=== PATIENT | male | born 1970 | race Caucasian/White ===

== ENCOUNTER 2017-10-18 08:44 | Emergency (ER) | payer MEDICARE, SELFPAY ==
[2017-10-18 08:45] VITALS: BP 144/99; PULSE 76; RESP 17; TEMP 37.2; O2SAT 94; BMI 27.8
--- NOTE | 2017-10-18 09:08 | CT_ITS ---
STUDY: CT BRAIN WITHOUT CONTRAST REASON FOR EXAM: Male, 47 years old. Vertigo times today, patient is deaf. RADIATION DOSAGE (If Supplied By Facility): CTDIvol = ( 44.99 ) mGy, DLP = ( 846.73 ) mGycm TECHNIQUE: Transaxial CT imaging of the brain was performed without administration of intravenous contrast material. Individualized dose optimization techniques were used for this CT. COMPARISON: None. FINDINGS: Normal soft tissue structures. Normal calvarium. There is asymmetry of the ventricles which can be an anatomic variant. Normal white matter tracts of the cerebral hemispheres. Normal basal ganglia and thalami. Normal brainstem. Normal cerebellum. There is no intracranial hemorrhage. There are no findings of an acute ischemic infarction. There is minimal mucoperiosteal inflammatory disease of the bilateral ethmoid and right maxillary sinuses consistent with minimal chronic sinusitis. The bilateral mastoid air cells are clear. CT/Brain/Head without Contrast IMPRESSION: There is no acute intracranial pathology. Electronically Signed: Belgica Perez MD at 9:52 EST , Service support ,
--- NOTE | 2017-10-18 09:09 | EKG12_ITS ---
Test Reason : DIZZINESS Blood Pressure : / mmHG Vent. Rate : 062 BPM Atrial Rate : 062 BPM P-R Int : 178 ms QRS Dur : 110 ms QT Int : 374 ms P-R-T Axes : 057 026 036 degrees QTc Int : 379 ms Normal sinus rhythm Normal ECG Confirmed by CAMILA CHRISTY, MÓNICA ([id number]), marketing editor MARIBETH GARCIA ([id number] on 10/21/2017 10:31:35 AM Referred By: DANIEL Confirmed By:MÓNICA JENSEN MD
[2017-10-18] MEDS: 0.9% Normal Saline 1,000 ML 150 ML IV (09:31)
[2017-10-18] MEDS: Meclizine 12.5 MG Tablet 25 MG PO (09:31)
[2017-10-18 09:32] VITALS: BP 124/90; BP 132/90; BP 141/93; PULSE 68; PULSE 77; PULSE 82
[2017-10-18 09:36] LABS: Absolute Lymphocyte Count 2.71 X10^3/ul (0.83-4.51); Absolute Neutrophil Count 4.2 X10^3/uL (2.0-7.7); Basophil# 0.06 X10^3/uL; Basophil% 0.7 % (0-1); Eosinophil# 0.79 X10^3/uL; Eosinophils% 9.3 % (0-5); Hematocrit 43.9 % (40-54); Hemoglobin 15.1 g/dl (13.0-16.5); Lymphocyte # 2.71 X10^3/ul (4.0); Mean Corp Hgb Conc 34.4 g/gl (32-36); Mean Corpuscular Hgb 31.2 pg (27.0-32.0); Mean Corpuscular Volume 90.7 fL (80-94); Mean Platelet Vol. 9.9 fl (6.2-12.0); Monocyte# 0.66 X10^3/uL; Monocyte% 7.8 % (0-10); Neutrophil # 4.24 X10^3/uL (2.7-7.7); Platelet Count 202 K/mm3 (150-450); RBC Distribution Width CV 12.9 % (11.6-14.6); RBC Distribution Width SD 42.3 fl (35.1-43.9); Red Blood Count 4.84 M/mm3 (4.6-6.2); White Blood Count 8.5 K/mm3 (4.4-11.0)
[2017-10-18 09:37] LABS: POSITIVE COUNT NO; POSITIVE DIFFERENTIAL NO; POSITIVE MORPHOLOGY NO
[2017-10-18 09:49] LABS: Anion Gap 7 (5-15); BUN 11 mg/dL (7-18); BUN/Creat Ratio 11.6 RATIO (10-20); Chloride 106 mmol/L (98-107); Creatinine, Serum 0.94 mg/dL (0.70-1.30); EST Glomerular Filtration Rate 91 mL/min (>60); Est Glom Filt Rate - Afr Amer 111 mL/min (>60); Estimated Creatinine Clearance 115.38 ml/min; Glucose 82 mg/dL (70-110); Potassium 3.7 mmol/L (3.5-5.1); Sodium Level 140 mmol/L (136-145)
--- NOTE | 2017-10-18 10:12 | ED.VISSUMM ---
- ER Visit Summary Date of Service: 10/18/17 Chief Complaint: [Dizziness] History of Present Illness: The patient is a 47 M [presents to the emergency department with dizziness ?4 days. Patient states that he woke up one morning and was acutely lightheaded and dizzy. Patient felt very off balance and nauseated. Patient states that typically dizziness is worse when laying on his left side and turning his head. Patient denies any falls or head injuries. Denies any recent illness and denies any fever. Patient has had some intermittent headaches but none currently. Patient has been under increased stress for the last 4 days due to some social issues. The patient and his significant other are both deaf however they are good lip readers and I was able to communicate with them initially by writing out questions on paper. Before the end of their visit a sign poster presented to the ER to assist with communication.] Physical Examination: [HEENT-PERRLA, EOMI. Cranial nerves II through XII grossly intact. TMs clear. Mucous membranes moist. No adenopathy. Cardiovascular-regular rate and rhythm without murmur or ectopy Lungs-clear to auscultation, chest wall stable without crepitus or subcu emphysema Abdomen-normoactive bowel sounds, soft, nontender, no rebound or rigidity, no peritoneal signs. Neuro bacc-qwgwkc-ogga and heel baker testing within normal limits, negative Romberg, negative pronator drift, fundi benign. Patient was Hallpike and no nystagmus was elicited. Extremities-intact ?4, normal range of motion, normal pulses, atraumatic] Test Results: [EKG obtained on arrival shows sinus rhythm with a ventricular rate of 62 bpm with no acute ST segment changes. CBC with differential was normal. Chemistries were normal. Troponin was less than 0.02. CT scan of the brain without contrast was normal.] Emergency Department Course and Treatment: [Patient was medicated with Antivert and he did feel improved after. I will ambulate patient in the department and plan will be to discharge to home with referral to neurology on-call.] Treatment Plan: [Prescription for Antivert and follow-up with neurology] Disposition: [Discharged home in stable condition] Impression: [Vertigo-suspect benign positional] This note was generated with RubyRideation software. It may contain incorrect words, spelling, and punctuation that were not noted in review of the chart prior to signing ED Disposition - Plan for ED Patient: Chief Complaint: Dizziness Referrals: Nazanin Beltran MD [Primary Care Provider] -
--- NOTE | 2017-10-18 10:16 | ED.DCSUM_ITS ---
- ER Visit Summary Date of Service: 10/18/17 Chief Complaint: [Dizziness] History of Present Illness: The patient is a 47 M [presents to the emergency department with dizziness ?4 days. Patient states that he woke up one morning and was acutely lightheaded and dizzy. Patient felt very off balance and nauseated. Patient states that typically dizziness is worse when laying on his left side and turning his head. Patient denies any falls or head injuries. Denies any recent illness and denies any fever. Patient has had some intermittent headaches but none currently. Patient has been under increased stress for the last 4 days due to some social issues. The patient and his significant other are both deaf however they are good lip readers and I was able to communicate with them initially by writing out questions on paper. Before the end of their visit a analog circuit designer presented to the ER to assist with communication.] Physical Examination: [HEENT-PERRLA, EOMI. Cranial nerves II through XII grossly intact. TMs clear. Mucous membranes moist. No adenopathy. Cardiovascular-regular rate and rhythm without murmur or ectopy Lungs-clear to auscultation, chest wall stable without crepitus or subcu emphysema Abdomen-normoactive bowel sounds, soft, nontender, no rebound or rigidity, no peritoneal signs. Neuro djar-yceonm-jkns and heel baker testing within normal limits, negative Romberg, negative pronator drift, fundi benign. Patient was Hallpike and no nystagmus was elicited. Extremities-intact ?4, normal range of motion, normal pulses, atraumatic] Test Results: [EKG obtained on arrival shows sinus rhythm with a ventricular rate of 62 bpm with no acute ST segment changes. CBC with differential was normal. Chemistries were normal. Troponin was less than 0.02. CT scan of the brain without contrast was normal.] Emergency Department Course and Treatment: [Patient was medicated with Antivert and he did feel improved after. I will ambulate patient in the department and plan will be to discharge to home with referral to neurology on-call.] Treatment Plan: [Prescription for Antivert and follow-up with neurology] Disposition: [Discharged home in stable condition] Impression: [Vertigo-suspect benign positional] This note was generated with InSite Wirelessation software. It may contain incorrect words, spelling, and punctuation that were not noted in review of the chart prior to signing ED Disposition - Plan for ED Patient: Chief Complaint: Dizziness Referrals: Nazanin Beltran MD [Primary Care Provider] -
--- NOTE | 2017-10-18 10:16 | ED.DEP ---
ED Disposition - Plan for ED Patient: Chief Complaint: Dizziness Instructions: ED BPV Vertigo Prescriptions: Meclizine HCl [Antivert] 25 mg PO 4X/DAY PRN PRN #30 tab PRN Reason: Vertigo Referrals: Nazanin Beltran MD [Primary Care Provider] - Eduarda Carney MD [STAFF PHYSICIAN] - 3-5 Days
[2017-10-18 10:22] VITALS: BP 139/95; PULSE 70; RESP 16; O2SAT 97
--- NOTE | 2017-10-18 10:28 | ED.RN ---
Verbal and written d/c instructions given via spanish interpreter. All questions answered. Skin w/d. ABCs intact. Gait steady out of department.
== END 2017-10-18 10:28 | disposition home or self-care (01) ==
PROVIDERS: Emergency Provider Emergency Medicine; Family Provider Internal Medicine; PCP Internal Medicine
DX: R42 Dizziness and giddiness (principal); Z72.0 Tobacco use
CPT/HCPCS: 70450; 80048; 84484; 85025; 93005; 96360; 99284; J7030; A4216

== ENCOUNTER 2020-06-11 16:25 | Emergency (ER) | payer MEDICARE, SELFPAY ==
[2020-06-11 16:26] VITALS: BP 112/89; PULSE 81; RESP 16; TEMP 35.9; O2SAT 98; BMI 32.2
--- NOTE | 2020-06-11 16:37 | RAD_ITS ---
STUDY: X-RAY CHEST REASON FOR EXAM: Male, 50 years old. FALL ONTO GLASS TABLE, LACERATION TO LEFT UPPER ARM/ AXILLA, MAJOR BLOOD LOSS -- PT UNABLE TO RELAX LEFT ARM OUT OF CHEST FIELD D/T THE INJURY TECHNIQUE: AP COMPARISON: 06/06/2016 FINDINGS: The lungs are clear and expanded. There is no demonstrated pleural abnormality. Normal size heart. Normal mediastinum and luis. Normal visualized pulmonary arteries. Normal visualized aortic arch and descending thoracic aorta. Normal visualized thoracic spine. Normal visualized ribs, clavicles, and shoulders. There is no demonstrated abnormality of the visualized soft tissue structures of the upper abdomen. RAD/Chest 1 View (Portable) IMPRESSION: Stable, nonacute portable x-ray examination of the chest. Electronically Signed: Demetrio Ahmadi MD (Bro[place]) at 16:57 EDT , Service support ,
[2020-06-11] MEDS: 0.9% Normal Saline 1,000 ML 1000 ML IV (16:38)
[2020-06-11] MEDS: Diphth,Pertuss(Acell),Tet Vac 0.5 ML Vial IM (16:41)
[2020-06-11] MEDS: Ondansetron 4 MG/2 ML Vial IV (16:41)
[2020-06-11] MEDS: Cefazolin 1 GM/50 ML BAG IV (16:41)
--- NOTE | 2020-06-11 16:43 | ED.DCSUM_ITS ---
History of Present Illness Chief Complaint: Trauma Informant: Patient Onset: Today Context: Sudden Onset Timing: Continuous Current Severity: Severe Maximum Severity: Severe Narrative: The patient is a 50-year-old male who is deaf that presents to the emergency department with upper arm injury. Patient was at his home. He was in his family room and lost his balance. He fell into a glass coffee table. The table shattered and he suffered a large, deep laceration into the left arm. EMS does note significant blood loss at the scene. The patient was placed in a trauma sterile dressing and brought here immediately. He denies any weakness or numbness in the hand. He is not on anticoagulants. He denies other injury. He is otherwise been in his normal state of health. Prior similar symptoms: No Recent Illness/Hospitalization: No Past Medical History - Allergies and Home Meds Allergies/Adverse Reactions: Allergies No Known Allergies Allergy (Verified 06/11/20 16:33) Primary Care Physician: Nazanin Beltran MD [Primary Care Provider] - Prior records reviewed: Yes Past Medical History: - - Vertigo Surgical History: noncontributory Smoking Status: Current every day smoker Review of Systems General: Denies: Chills, Fever, Sweats Eyes: Denies: Visual changes - bilaterally, Diplopia ENT: Denies: Rhinorrhea, Sore throat Cardiovascular: Denies: Chest pain, Palpitations Respiratory: Denies: Dyspnea, Cough, Dyspnea on exertion Gastrointestinal: Denies: Abdominal pain, Nausea, Vomiting, Diarrhea, Melena, Hematochezia Genitourinary: Denies: Dysuria, Hematuria, Frequency Musculoskeletal: Denies: Back pain, Extremity Pain Skin: Denies: Rash, Wounds Neurological: Denies: Headache, Weakness, Numbness Physical Exam Vital Signs/Narrative: Vital Signs Temp Pulse Resp BP Pulse Ox 06/11/20 16:26 96.7 F L 81 16 112/89 H 98 Inital Vital Signs reviewed: Yes General: Well nourished, Well developed, No Acute Distress Head: Normocephalic, Atraumatic Eyes: Perrl, EOMI ENT: Moist mucous membranes, No rhinorrhea Neck: Supple, Nontender Cardiovascular: Regular rate, Regular rhythm, No murmurs Respiratory: No distress, CTA bilaterally, Chest nontender Abdomen: Soft, Nontender, Nondistended, Normal bowel sounds Back: Nontender, Normal Inspection Extremities: - - Patient has approximately a 12 inch laceration from the dorsum of the left shoulder that runs down the arm longitudinally to the elbow. When dressing is removed, he is through multiple areas of muscle with visible bone. There is no definitive pulsatile bleeding. Skin: Normal color, No rash Neurological: Alert, Oriented x3, Cranial nerves II-XII grossly intact, Normal Strength, Normal Sensation Psychological: Normal affect, Normal Mood Diagnostic/Tx/Re-eval - Medical Decision Making Patient presents with significant laceration with limb threatening trauma. IV was established. He was given Ancef and tetanus. He was discussed immediately with [facility] and accepted by Dr. Rosa. Given the significant mental blood loss and concern for ischemia, I do feel that the patient would benefit from air transport as his trauma is limb threatening. The patient will be transferred immediately to [facility]. Impression 1. 12 inch laceration to left arm through multiple layers, muscle, with exposed bone - Critical Care Time Critical care time (excluding procedures): 30-74 minutes, Discussing w/Patient &/or Family/Hotel Reservation Agent, Discussing w/Consultants, Arranging Admission or Transfer ED Disposition - Plan for ED Patient: Referrals: Nazanin Beltran MD [Primary Care Provider] -
[2020-06-11 16:52] VITALS: BP 130/65; PULSE 70; RESP 12; O2SAT 97
[2020-06-11 16:52] LABS: Absolute Lymphocyte Count 2.91 X10^3/uL (0.83-4.51); Absolute Neutrophil Count 4.5 X10^3/uL (2.0-7.7); Basophil# 0.11 X10^3/uL; Basophil% 1.2 % (0-1); Eosinophil# 0.81 X10^3/uL; Eosinophils% 8.8 % (0-5); Hemoglobin 14.3 g/dL (13.0-16.5); Lymphocyte # 2.91 X10^3/ul (4.0); Lymphocyte % 31.5 % (19-41); Mean Corp Hgb Conc 34.9 g/dL (32-36); Mean Corpuscular Hgb 31.6 pg (27.0-32.0); Mean Corpuscular Volume 90.7 fL (80-94); Mean Platelet Vol. 10.8 fl (6.2-12.0); Monocyte# 0.85 X10^3/uL; Monocyte% 9.2 % (0-10); NRBC Flagged by Analyzer 0 % (0-5); Neutrophil % 48.5 % (47-70); Platelet Count 308 K/mm3 (150-450); RBC Distribution Width CV 12.7 % (11.6-14.6); RBC Distribution Width SD 41.9 fl (35.1-43.9); Red Blood Count 4.52 M/mm3 (4.6-6.2); White Blood Count 9.3 K/mm3 (4.4-11.0)
[2020-06-11 16:58] LABS: International Normalized Ratio 1.1; Prothrombin Time (Protime)PT. 13.4 SECONDS (11.7-14.9)
[2020-06-11 16:59] LABS: Partial Thromboplast Time 26.2 Seconds (24.1-36.2)
--- NOTE | 2020-06-11 16:59 | ED.RN ---
used [employer] tablet for Georgian Sign Language with Dr. Llamas and Ana Maria RN, and this RN to explain transfer to pt. Pt agreeable, gave consent, questions answered.
[2020-06-11 17:06] LABS: ALB/GLOB Ratio 1.1 RATIO (0.9-2.4); AST(SGOT) 17 U/L (15-37); Alanine Aminotransfer ALT/SGPT 29 U/L (16-61); Albumin, Serum 3.8 g/dL (3.2-5.0); Alkaline Phosphatase 60 U/L (45-117); Anion Gap 9 (5-15); BUN 17 mg/dL (7-18); BUN/Creat Ratio 17.5 RATIO (10-20); Calcium,Total 8.6 mg/dL (8.5-10.1); Chloride 111 mmol/L (98-107); Creatinine, Serum 0.97 mg/dL (0.70-1.30); EST Glomerular Filtration Rate 88 mL/min (>60); Est Glom Filt Rate - Afr Amer 106 mL/min (>60); Estimated Creatinine Clearance 105.25 ml/min; Globulin 3.4 g/dL (2.2-4.2); Glucose 120 mg/dL (74-106); Potassium 4.3 mmol/L (3.5-5.1); Protein, Total 7.2 g/dL (6.4-8.2); Sodium Level 140 mmol/L (136-145)
[2020-06-11 17:23] VITALS: BP 101/72; PULSE 82
--- NOTE | 2020-06-11 17:23 | ED.RN ---
2nd Liter of normal saline through pressure bag. 100 mcg fentanyl given by [facility].
== END 2020-06-11 17:30 | disposition short-term general hospital (02) ==
PROVIDERS: Emergency Provider Emergency Medicine; PCP Internal Medicine
DX: S41.112A Laceration without foreign body of left upper arm, initial encounter (principal); F17.200 Nicotine dependence, unspecified, uncomplicated; W19.XXXA Unspecified fall, initial encounter
CPT/HCPCS: 71045; 80053; 85025; 85610; 85730; 90715; 96372; 96374; 99285; J7030; A4216; J2405

== ENCOUNTER 2021-04-11 21:09 | Emergency (ER) | payer MEDICARE, SELFPAY ==
[2021-04-11 21:09] VITALS: BP 175/116; PULSE 74; RESP 16; TEMP 36.3; BMI 31.4
[2021-04-11 21:33] VITALS: BP 171/96
--- NOTE | 2021-04-11 22:25 | ED.VIS.DENTA ---
HPI History of Present Illness Chief Complaint: Dental Informant: patient Onset/Context/Timing Onset: Month(s) (3) Context: Gradual Onset Timing: Continuous Quality: sore, aching Location: all teeth/gums, max and franklyn Current Severity: Severe Maximum Severity: Severe Worsened by: eating, brushing teeth Relieved by: - ( nothing) Associated Symptoms Assocated Symptom - Dental: Negative for fever, jaw swelling or face swelling Narrative Narrative: Patient presents with dental pain has been worsening over the past 3 months. States he has been unable to get into a dentist. States he has been brushing his teeth a lot but it does not seem to matter. He has had a minor amount of bleeding, just from one area on his right mandibular first molar area, but everything is hurting. He denies any focal swelling. [facility] Medical History (Updated 04/11/21 @ 22:[address] Antonio Martel MD) Deaf Home Medications hydrocodone-acetaminophen 1 tab PO Q4H PRN PRN 2 Days #10 tablet 04/11/21 [Rx Last Taken Unknown] metronidazole 500 mg PO Q8H #30 tab 04/11/21 [Rx Last Taken Unknown] Allergy/AdvReac Type Severity Reaction Status Date / Time No Known Allergies Allergy Verified 04/11/21 21:09 Social History Smoking Status: Current every day smoker tobacco type: cigarettes ROS ROS ED Constitutional Constitutional ED: Denies chills or fever(s) Eyes Eyes: Denies change in vision or diplopia ENT ENT ED: Reports as per HPI and dental pain; Denies ear discharge, ear pain, epistaxis or hoarseness Cardiovascular Cardiovascular: Denies chest pain or palpitations Respiratory/Chest Respiratory/Chest: Denies cough or dyspnea Gastrointestinal Gastrointestinal: Denies diarrhea, nausea or vomiting Integumentary Denies abscess, Abrasions or rash Neurologic Neurologic: Denies headache(s), paresthesias or weakness EXAM Physical Exam Const Vital Signs: 04/11/21 21:09 04/11/21 21:33 Temperature 97.3 F L Temperature Source Temporal Pulse Rate 74 Respiratory Rate 16 Blood Pressure 175/116 H 171/96 H Blood Pressure Mean 135 121 Positive well nourished and well developed General Appearance ED: well developed and NAD HEENT HEENT Narrative: No trismus. No sublingual edema or fullness. No stridor. Negative for trauma Mouth ED: Yes tongue normal Mouth: tongue normal Teeth and Gingiva: caries, gingiva abnormal Positive for diffuse gingival erythema (Without any evidence of necrosis or active bleeding. Multiple small dental caries and prior fillings.) and gingival tenderness; Negative for gingival edema and purulent d/c from gingiva and poor dentition Eyes PERRL and EOMs intact bilaterally Neck supple Neck Narrative: Single tender right submandibular lymph node. No fluctuance or abscess. Neuro oriented x3, CN's II-XII intact bilaterally and no focal motor deficits Sensorium / Orientation: alert Gait (Neuro): normal gait Psych mental status grossly normal Skin no rashes or lesions noted and no wounds MDM MDM MDM Narrative Medical decision making narrative: Patient had a fairly focal complaint, and given the fact that he is deaf, we communicated by writing on a piece of paper and he was able to say some words. His was there as well, I asked him if there were any questions, they indicated no, he is basically having dental pain that is progressively been worsening for 3 months, no discharge, minor bleeding, and no fevers or systemic symptoms. He appears to have gingivitis but I see no definitive evidence of necrotizing gingivitis. He was placed on metronidazole, analgesics, and referred to dental clinic. Discharge Plan Triage Chief Complaint: Dental ED Provider: Antonio Martel Dx/Rx/DC Orders Clinical Impression: Acute gingivitis Instructions: Understanding Gingivitis Prescriptions: New hydrocodone-acetaminophen [hydrocodone-acetaminophen] 1 TABLET tablet 1 tab PO Q4H PRN PRN (Reason: Pain) 2 Days Qty: 10 RF: 0 metronidazole [metronidazole] 500 MG tablet 500 mg PO Q8H Qty: 30 RF: 0 Primary Care Provider: Nazanin Beltran Referrals: Nazanin Beltran MD [Primary Care Provider] - Dentist,Your [STAFF PHYSICIAN] - As soon as possible (see resource list attached) Disposition Disposition: Home, Self Care Discharge Date/Time: 04/11/21 22:46
[2021-04-11] MEDS: Naproxen 250 MG Tablet 500 MG PO (22:41)
[2021-04-11] MEDS: HYDROcodone Bitartrate/Apap 5/325 Tablet PO (22:41)
[2021-04-11] MEDS: metroNIDAZOLE 500 MG Tablet PO (22:41)
== END 2021-04-11 22:46 | disposition home or self-care (01) ==
PROVIDERS: Emergency Provider Emergency Medicine; PCP Internal Medicine
DX: K05.00 Acute gingivitis, plaque induced (principal); F17.210 Nicotine dependence, cigarettes, uncomplicated
CPT/HCPCS: 99282

== ENCOUNTER 2023-03-27 18:48 | Emergency (ER) | payer MEDICARE, SELFPAY ==
[2023-03-27 18:51] VITALS: BP 139/107; PULSE 103; RESP 17; TEMP 36.8; O2SAT 100; BMI 29.0
[2023-03-27 18:54] VITALS: BP 141/100; PULSE 102; RESP 17; O2SAT 98
--- NOTE | 2023-03-27 19:19 | EDS_ITS ---
HPI History of Present Illness Chief Complaint: Chest Pain Narrative Narrative: History and physical is limited secondary to patient's deafness, he speaks through Peruvian sign language. 53-year-old male presents with elevated D-dimer from his physician's office, Dr. Bob. Use of third-green party printing machine mechanic using Peruvian sign language was incorporated. He states that he had not seen his primary care physician in approximately 5 years and was there for a physical today. They state that he had a chest x-ray performed and he had abnormal lab work. He went home and was told that they would call [facility] results, and they received a phone call stating that he needs to get to the emergency department because of one of his laboratory values being high. Patient does relate history that he has history of pulmonary embolism years remotely and is currently not taking blood thinners. He has past medical history of asthma and may feel short of breath at times. He also complains of left low back pain radiating down towards his knee on occasion. He is unsure as to which laboratory value was elevated but presents because he was instructed by his primary care physician's office. He denies any chest pain or shortness of breath, no leg swelling or any other symptoms. He did mention that he thought that a dimer was elevated. [facility] Medical History Deaf Home Medications hydrocodone-acetaminophen 5-325mg 5mg-325mg 1 tab PO Q4H PRN PRN Pain 2 days #10 TABLETS 04/11/21 [Rx Last Taken Unknown] metronidazole 500 mg tablet 500 mg PO Q8H #30 tabs 04/11/21 [Rx Last Taken Unknown] Allergy/AdvReac Type Severity Reaction Status Date / Time No Known Allergies Allergy Verified 03/27/23 18:49 Social History Smoking Status: Current every day smoker tobacco type: cigarettes ROS ROS ED ROS Narrative Constitutional: No fever, no chills. HEENT: No sore throat. No neck pain. No loss of vision. No rhinorrhea. Cardiovascular: No chest pain. No palpitations. No pedal edema. Respiratory: No cough, no shortness of breath. Abdominal: No abdominal pain. No nausea. No vomiting. Genitourinary: No dysuria. No hematuria. Musculoskeletal: No myalgias. No arthralgias. Neurologic: No headaches. No dizziness. No lightheadedness. Skin: No rash. No change in color. Psychiatric: No depression. No anxiety. EXAM Physical Exam Narrative Exam Narrative: Afebrile. Vital signs noted. HEENT: Normocephalic. Atraumatic. PERRL, EOMI. Neck soft and supple. No point tenderness or step off. Deafness. Cardiovascular: Regular rate and rhythm. No murmurs, rubs, or gallops appreciated. Respiratory: No tachypnea. Lungs clear to auscultation bilaterally. Gastrointestinal: Abdomen soft, nontender, with normoactive bowel sounds. No rebound or guarding. Neurological: Awake. Alert. Nonfocal, nonlateralizing. Skin: No rash. Normal color. No pallor. Musculoskeletal: No pedal edema. Full range of motion extremities. Const Vital Signs: 03/27/23 18:51 03/27/23 18:54 Temperature 98.3 F Temperature Source Temporal Pulse Rate 103 H 102 H Respiratory Rate 17 17 Blood Pressure 139/107 H 141/100 H Blood Pressure Mean 117 113 Pulse Ox 100 98 Oxygen Delivery Method Room Air Room Air MDM MDM MDM Narrative Medical decision making narrative: I reviewed the patient's prior laboratory work. It looks as if a D-dimer was performed today and is elevated at 0.54 just above his age limit cutoff of 0.51. I will obtain basic laboratory work and a CTA to rule out pulmonary embolism, however he is satting 100% on room air. He is only mildly tachycardic with a pulse of 103. I will see if I can obtain his chest x-ray results. However, I do not feel that a repeat would be indicated as we are obtaining a CTA of his chest. Since he was having left leg pain while I think it is more of a radicular type of pain towards the left, ultrasound will be obtained of the bilateral lower extremities to rule out DVT given his elevated D-dimer. Additionally, I do not feel that an EKG or troponin is indicated because he is not having chest pain currently. I was able to discuss the patient with Dr. Bob who saw him today. Given the patient's history of remote blood clot, the DVT screening labs/D-dimer was obtained. Given that it was elevated, I did repeat it and review it and it was normal at 0.46. I obtained ultrasound studies of the bilateral legs, and they are negative for DVT. CT of the chest shows no evidence of dissection or pulmonary embolism. At this point in time, as he was here for elevated D-dimer and it is actually normal and his studies showed no evidence of clotting, I feel he can be discharged safely home to follow-up with his primary care provider. Return instructions to the emergency department were reviewed. Disposition is discharged home in stable condition. History & Record Review Discussion w/independent historian: Patient Additional record(s) reviewed:: Prior ED visit Lab Data Attestation: I reviewed the patient's lab results. Labs: Laboratory Results - last 24 hr 03/27/23 19:28 WBC 8.6 RBC 4.66 Hgb 14.4 Hct 42.4 MCV 91.0 MCH 30.9 MCHC 34.0 RDW Std Deviation 41.3 RDW Coeff of Lenny 12.6 Plt Count 220 MPV 10.4 Immature Gran % (Auto) 0.500 Neut % (Auto) 65.0 Lymph % (Auto) 21.3 Sublette % (Auto) 6.7 Eos % (Auto) 5.4 H Baso % (Auto) 1.1 H Absolute Neuts (auto) 5.6 Absolute Lymphs (auto) 1.82 Nucleated RBC % 0 D-Dimer Quant (PE/DVT) 0.46 Sodium 141 Potassium 3.7 Chloride 108 H Carbon Dioxide 27.0 Anion Gap 6 BUN 10 Creatinine 1.09 Estim Creat Clear Calc 93.22 Est GFR (MDRD) Af Amer 92 Est GFR (MDRD) Non-Af 76 BUN/Creatinine Ratio 9.2 L Glucose 85 Calcium 9.2 Radiography Diagnostic Testing: Clinical Impression(s) from Imaging Studies Chest CTA 03/27/23 19:42 IMPRESSION: Normal CTA chest examination, without a demonstrated pulmonary embolism or arterial dissection. Electronically Signed: Kranthi Hsieh MD at 20:35 EDT , Venous Duplex 03/27/23 19:48 IMPRESSION: Normal venous Doppler ultrasound of the bilateral lower extremities. Electronically Signed: Kranthi Hsieh MD at 20:42 EDT , Discharge Plan Triage Chief Complaint: Chest Pain ED Provider: Bunny Sutherland Dx/Rx/DC Orders Clinical Impression: SOB (shortness of breath), Elevated d-dimer, Chest pain Instructions: ED Chest Pain, Uncertain Cause Prescriptions: No Action hydrocodone-acetaminophen [hydrocodone-acetaminophen] 1 TABLET tablet 1 tab PO Q4H PRN PRN (Reason: Pain) 2 Days Qty: 10 0RF metronidazole [metronidazole] 500 MG tablet 500 mg PO Q8H Qty: 30 0RF Primary Care Provider: Nas Bob Referrals: Nazanin Beltran MD [Med Staff - Piping Drafter] - Activity Restrictions/Additional Instructions: Follow-up with Dr. Bob as soon as possible. Disposition Disposition: Home, Self Care
[2023-03-27] MEDS: 0.9% Normal Saline 1,000 ML 1000 ML IV (19:29)
[2023-03-27 19:34] LABS: Absolute Lymphocyte Count 1.82 X10^3/uL (0.83-4.51); Absolute Neutrophil Count 5.6 X10^3/uL (2.0-7.7); Basophil# 0.09 X10^3/uL; Basophil% 1.1 % (0-1); Eosinophil# 0.46 X10^3/uL; Eosinophils% 5.4 % (0-5); Hematocrit 42.4 % (40-54); Hemoglobin 14.4 g/dL (13.0-16.5); Lymphocyte # 1.82 X10^3/ul (0.83-4.51); Lymphocyte % 21.3 % (19-41); Mean Corpuscular Hgb 30.9 pg (27.0-32.0); Mean Platelet Vol. 10.4 fl (6.2-12.0); Monocyte# 0.57 X10^3/uL; Monocyte% 6.7 % (0-10); NRBC Flagged by Analyzer 0 % (0-5); Neutrophil # 5.57 X10^3/uL (2.7-7.7); Platelet Count 220 K/mm3 (150-450); RBC Distribution Width CV 12.6 % (11.6-14.6); RBC Distribution Width SD 41.3 fl (35.1-43.9); Red Blood Count 4.66 M/mm3 (4.6-6.2); White Blood Count 8.6 K/mm3 (4.4-11.0)
--- NOTE | 2023-03-27 19:42 | CT_ITS ---
STUDY: CTA CHEST REASON FOR EXAM: Male, 53 years old. elevated d-dimer RADIATION DOSAGE (If Supplied By Facility): CTDIvol = ( 16.99 ) mGy, DLP = ( 543.86 ) mGycm TECHNIQUE: The examination was performed with the intravenous administration of IV 100mL Isovue-370. Post-processing of the angiographic images was performed, with multiplanar reformation and 3D reconstruction. Individualized dose optimization techniques were used for this CT. COMPARISON: None. FINDINGS: Normal enhancement of the main pulmonary artery and right and left pulmonary arteries. Normal enhancement of the bilateral peripheral pulmonary arteries. There is no demonstrated pulmonary embolism. Normal thoracic aorta and visualized great vessels. There is no demonstrated aortic dissection. Normal heart and pericardium. Normal mediastinum. Normal hilar regions. Normal visualized trachea and bronchi. The lungs are well expanded. Normal pulmonary parenchyma. Normal pleura. Normal chest wall structures. Normal osseous structures. Normal visualized upper abdomen. CT/CTA Chest W/WO Contrast IMPRESSION: Normal CTA chest examination, without a demonstrated pulmonary embolism or arterial dissection. Electronically Signed: Kranthi Hsieh MD at 20:35 EDT ,
[2023-03-27 19:47] LABS: Anion Gap 6 (5-15); BUN 10 mg/dL (7-18); BUN/Creat Ratio 9.2 RATIO (10-20); Calcium,Total 9.2 mg/dL (8.5-10.1); Chloride 108 mmol/L (98-107); Creatinine, Serum 1.09 mg/dL (0.70-1.30); EST Glomerular Filtration Rate 76 mL/min (>60); Est Glom Filt Rate - Afr Amer 92 mL/min (>60); Estimated Creatinine Clearance 93.22 ml/min; Glucose 85 mg/dL (74-106); Potassium 3.7 mmol/L (3.5-5.1); Sodium Level 141 mmol/L (136-145)
--- NOTE | 2023-03-27 19:48 | US_ITS ---
STUDY: VENOUS DOPPLER ULTRASOUND - BILATERAL LOWER EXTREMITIES REASON FOR EXAM: Male, 53 years old. chest pain SOB TECHNIQUE: Ultrasound evaluation of the deep vein system to include chacon-scale imaging and compression was performed. Chacon-scale imaging and Doppler sonographic evaluation, including duplex spectral analysis and qualitative color flow sonography, was performed. COMPARISON: None. FINDINGS: RIGHT LEG Common Femoral Vein: Normal compression, spontaneity and augmentation. Normal color Doppler. Common Femoral Vein/Greater Saphenous Junction: Normal compression, spontaneity and augmentation. Normal color Doppler. Deep Femoral Vein: Normal compression, spontaneity and augmentation. Normal color Doppler. Femoral Proximal: Normal compression, spontaneity and augmentation. Normal color Doppler. Femoral Middle: Normal compression, spontaneity and augmentation. Normal color Doppler. Femoral Distal: Normal compression, spontaneity and augmentation. Normal color Doppler. Popliteal Vein: Normal compression, spontaneity and augmentation. Normal color Doppler. Posterior Tibial Vein: Normal compression, spontaneity and augmentation. Normal color Doppler. Peroneal Vein: Normal compression, spontaneity and augmentation. Normal color Doppler. LEFT LEG Common Femoral Vein: Normal compression, spontaneity and augmentation. Normal color Doppler. Common Femoral Vein/Greater Saphenous Junction: Normal compression, spontaneity and augmentation. Normal color Doppler. Deep Femoral Vein: Normal compression, spontaneity and augmentation. Normal color Doppler. Femoral Proximal: Normal compression, spontaneity and augmentation. Normal color Doppler. Femoral Middle: Normal compression, spontaneity and augmentation. Normal color Doppler. Femoral Distal: Normal compression, spontaneity and augmentation. Normal color Doppler. Popliteal Vein: Normal compression, spontaneity and augmentation. Normal color Doppler. Posterior Tibial Vein: Normal compression, spontaneity and augmentation. Normal color Doppler. Peroneal Vein: Normal compression, spontaneity and augmentation. Normal color Doppler. US/Venous Duplex Imag/Al[place]to Extrem IMPRESSION: Normal venous Doppler ultrasound of the bilateral lower extremities. Electronically Signed: Kranthi Hsieh MD at 20:42 EDT ,
[2023-03-27 19:49] LABS: D-Dimer Quantitative (DVT/PE) 0.46 FEU/ug/m (0.27-0.49)
[2023-03-27 21:18] VITALS: RESP 16
== END 2023-03-27 21:19 | disposition home or self-care (01) ==
PROVIDERS: Emergency Provider Emergency Medicine; PCP Family Medicine; Visit Provider Emergency Medicine
DX: R06.02 Shortness of breath (principal); R79.89 Other specified abnormal findings of blood chemistry; R07.9 Chest pain, unspecified; F17.210 Nicotine dependence, cigarettes, uncomplicated; Z86.711 Personal history of pulmonary embolism
CPT/HCPCS: 71275; 80048; 85025; 85379; 93970; 99284; J7030; Q9967; A4216

== ENCOUNTER → 2023-03-27 | Outpatient (CLI) | payer MEDICARE, SELFPAY ==
[2023-03-27 17:10] LABS: D-Dimer Quantitative (DVT/PE) 0.54 FEU/ug/m (0.27-0.49)
== END | disposition home or self-care (01) ==
LOC: LABSPEC 16:37
PROVIDERS: PCP Internal Medicine; Referring Provider Family Medicine; Visit Provider Family Medicine
DX: R07.9 Chest pain, unspecified (principal)
CPT/HCPCS: 85379

== ENCOUNTER 2025-02-07 20:54 | Emergency (ER) | payer MEDICARE, SELFPAY ==
[2025-02-07 20:58] VITALS: BP 182/113; PULSE 67; RESP 18; TEMP 37.1; O2SAT 100; BMI 31.1
[2025-02-07 21:11] VITALS: BP 130/72; PULSE 78; RESP 18; TEMP 37; O2SAT 98
[2025-02-07] MEDS: 0.9% Normal Saline (1000mL) 1,000 ML 999 ML IV (22:15)
[2025-02-07] MEDS: Dicyclomine 10 MG Capsule 20 MG PO (22:16)
[2025-02-07] MEDS: Ketorolac 30 MG/ML Syringe IV (22:16)
[2025-02-07] MEDS: Ondansetron 4 MG/2 ML Vial IV (22:16)
[2025-02-07 22:33] LABS: Absolute Lymphocyte Count 1.79 X10^3/uL (0.83-4.51); Absolute Neutrophil Count 4.1 X10^3/uL (2.0-7.7); Basophil# 0.07 X10^3/uL; Basophil% 0.9 % (0-1); Eosinophil# 0.83 X10^3/uL; Eosinophils% 11.1 % (0-5); Hematocrit 43.8 % (40-54); Hemoglobin 15.4 g/dL (13.0-16.5); Lymphocyte # 1.79 X10^3/ul (0.83-4.51); Mean Corp Hgb Conc 35.2 g/dL (32-36); Mean Corpuscular Volume 90.9 fL (80-94); Mean Platelet Vol. 10.6 fl (6.2-12.0); Monocyte# 0.64 X10^3/uL; Monocyte% 8.6 % (0-10); NRBC Flagged by Analyzer 0 % (0-5); Neutrophil # 4.09 X10^3/uL (2.7-7.7); Platelet Count 232 K/mm3 (150-450); RBC Distribution Width CV 12.5 % (11.6-14.6); RBC Distribution Width SD 41.1 fl (35.1-43.9); Red Blood Count 4.82 M/mm3 (4.6-6.2); White Blood Count 7.5 K/mm3 (4.4-11.0)
[2025-02-07 22:43] LABS: AST(SGOT) 18 U/L (<=37); Alanine Aminotransfer ALT/SGPT 20 U/L (<=46); Albumin, Serum 4.5 g/dL (3.5-5.0); Alkaline Phosphatase 59 U/L (40-129); Anion Gap 11 (5-15); BUN 12 mg/dL (4-19); BUN/Creat Ratio 13.3 RATIO (10-20); Bilirubin, Direct 0.19 mg/dL (0.00-0.30); Calcium,Total 9.4 mg/dL (7.6-11.0); Carbon Dioxide 23.4 mmol/L (21.0-32.0); Chloride 105 mmol/L (98-108); Creatinine, Serum 0.93 mg/dL (0.70-1.20); EST Glomerular Filtration Rate 99 (>60); Estimated Creatinine Clearance 122.55 ml/min (50-250); Globulin 3.2 g/dL (2.2-4.2); Glucose 87 mg/dL (70-99); Lipase 45 U/L (13-75); Potassium 3.8 mmol/L (3.3-5.1); Protein, Total 7.7 g/dL (5.9-8.4); Sodium Level 139 mmol/L (133-145); Total Bilirubin 0.46 mg/dL (0.00-1.30)
[2025-02-07 22:55] VITALS: BP 165/95; PULSE 78; RESP 18; O2SAT 98
--- NOTE | 2025-02-07 23:20 | EDS_ITS ---
HPI History of Present Illness Chief Complaint: General Illness Informant: patient and spouse/S.O. Narrative Narrative: Patient is a 54-year-old male who states he awoke today and had generalized abdominal discomfort with bouts of nausea vomiting and loose stool/diarrhea. He states he has a mild headache associated with this. He denies any trauma. He denies any known sick contact. He states that he feels generally weak secondary to his symptoms. He states that they have not improved throughout the day and with this he is concerned for an underlying infection and therefore comes in for evaluation [facility] Medical History [place] Home Medications ?Medication ?Instructions ?Recorded ?Last Taken ?Type hydrocodone-acetaminophen 5-325mg 1 tab PO Q4H PRN PRN Pain 2 days 04/11/21 Unknown Rx 5mg-325mg #10 TABLETS metronidazole 500 mg tablet 500 mg PO Q8H #30 tabs Unknown Rx dicyclomine 20 mg tablet 20 mg PO 4X/DAY PRN Abdomina l 02/07/25 Unknown Rx bloating/spasm #28 tabs ondansetron 4 mg disintegrating 4 mg PO TID PRN nausea and 02/07/25 Unknown Rx tablet vomiting #21 tabs Allergy/AdvReac Type Severity Reaction Status Date / Time No Known Allergies Allergy Verified 02/07/25 20:58 Social History (Updated 02/07/25 @ 21:12 by Yazmin Perkins) household members: spouse housing: house Smoking Status: Current every day smoker tobacco type: cigarettes ROS ROS ED Constitutional Constitutional ED: Reports other Details: Positive fatigue/weakness ; Denies chills or fever(s) Eyes Eyes: Denies change in vision ENT ENT ED: Denies sore throat Cardiovascular Cardiovascular: Denies chest pain Respiratory/Chest Respiratory/Chest: Denies cough or dyspnea Gastrointestinal Gastrointestinal: Reports abdominal pain, diarrhea, nausea and vomiting; Denies melena Genitourinary Genitourinary ED: Denies dysuria or hematuria Musculoskeletal Musculoskeletal: Reports myalgias Integumentary Denies rash Neurologic Neurologic: Reports headache(s) and weakness Hematologic/Lymphatic Hematologic/Lymphatic: Denies easy bleeding or easy bruising Allergic/Immunologic Allergic/Immunologic ED: Denies mouth swelling or tongue swelling EXAM Physical Exam Const Vital Signs: 02/07/25 20:58 02/07/25 21:11 02/07/25 21:11 Temperature 98.8 F 98.6 F Temperature Source Oral Oral Pulse Rate 67 78 Respiratory Rate 18 18 Respiratory Effort Normal Non-Labored Respiratory Pattern Normal Blood Pressure 182/113 H 130/72 H Blood Pressure Mean 136 91 Pulse Ox 100 98 Oxygen Delivery Method Room Air 02/07/25 22:55 02/07/25 23:23 Temperature 98 F Temperature Source Pulse Rate 78 78 Respiratory Rate 18 18 Respiratory Effort Respiratory Pattern Blood Pressure 165/95 H 165/95 H Blood Pressure Mean 118 118 Pulse Ox 98 98 Oxygen Delivery Method Positive well nourished and well developed General Appearance ED: well developed; Negative for pallor HEENT HEENT Narrative: Mucous membranes are slightly dry and tacky No tongue or lip swelling no oral lesions no airway edema or compromise No trismus or difficulty with secretions or exudates or tonsil hypertrophy noted. Eyes PERRL and EOMs intact bilaterally General Eye ED: Negative for scleral icterus Neck supple Neck Narrative: No nuchal rigidity or meningeal signs Resp normal respiratory effort and clear to auscultation bilaterally Cardio regular rate and regular rhythm Rate: other Other Details: No murmurs rubs or gallops Radial and carotid pulses are equal and symmetric GI non-distended and no masses GI Narrative: Abdomen is soft and nondistended with hyperactive bowel sounds There is mild diffuse pain with palpation without voluntary guarding or rigidity No pulsatile mass or fluid wave Auscultation: hyperactive bowel sounds Palpation: soft Extremity normal to inspection Neuro oriented x3, CN's II-XII intact bilaterally and no sensory deficits noted Sensorium / Orientation: alert Motor Exam: strength 5/5 throughout Psych mental status grossly normal Skin no rashes or lesions noted General Skin Exam: Negative for jaundice or pallor MDM MDM MDM Narrative Medical decision making narrative: Patient presented to the ER hypertensive but otherwise with stable vitals. He reported 1 day of viral-like symptoms of generalized fatigue/weakness with headache as well as nausea vomiting diarrhea. Differential diagnosis is for viral stomach infection such as norovirus or rotavirus. Patient could also have atypical presentation for strep pharyngitis versus pancreatitis versus biliary colic or acute cholecystitis. As the abdomen was soft and nonsurgical I felt no need for an emergent CT scan. Basic blood work was obtained as well as a strep swab and patient was given Zofran Bentyl and IV fluids. Lab work revealed no clinically significant findings and after treatment patient reported feeling better. Therefore at this time with overall negative workup and improvement of symptoms I do not feel there is need for further testing and patient will be discharged home with symptomatic care. History & Record Review Discussion w/independent historian: Patient and Significant other Lab Data Attestation: I reviewed the patient's lab results. Labs: Laboratory Results - last 24 hr 02/07/25 21:21 WBC 7.5 RBC 4.82 Hgb 15.4 Hct 43.8 MCV 90.9 MCH 32.0 MCHC 35.2 RDW Std Deviation 41.1 RDW Coeff of Lenny 12.5 Plt Count 232 MPV 10.6 Immature Gran % (Auto) 0.400 Neut % (Auto) 55.0 Lymph % (Auto) 24.0 [place] % (Auto) 8.6 Eos % (Auto) 11.1 H Baso % (Auto) 0.9 Absolute Neuts (auto) 4.1 Absolute Lymphs (auto) 1.79 Nucleated RBC % 0 Sodium 139 Potassium 3.8 Chloride 105 Carbon Dioxide 23.4 Anion Gap 11 BUN 12 Creatinine 0.93 Estim Creat Clear Calc 122.55 Est GFR (MDRD) Non-Af 99 BUN/Creatinine Ratio 13.3 Glucose 87 Calcium 9.4 Total Bilirubin 0.46 Direct Bilirubin 0.19 AST 18 ALT 20 Alkaline Phosphatase 59 Total Protein 7.7 Albumin 4.5 Globulin 3.2 Lipase 45 Discharge Plan Triage Chief Complaint: General Illness ED Provider: Russel Haley Dx/Rx/DC Orders Clinical Impression: Viral illness, Hypertension Instructions: ED Gastroenteritis, Viral (Adult), ED Viral Syndrome (Adult) Prescriptions: New dicyclomine 20 mg tablet 20 mg PO 4X/DAY PRN (Reason: Abdominal bloating/spasm) Qty: 28 0RF ondansetron 4 mg tablet,disintegrating 4 mg PO TID PRN (Reason: nausea and vomiting) Qty: 21 0RF No Action hydrocodone-acetaminophen [hydrocodone-acetaminophen] 1 TABLET tablet 1 tab PO Q4H PRN PRN (Reason: Pain) 2 Days Qty: 10 0RF metronidazole [metronidazole] 500 MG tablet 500 mg PO Q8H Qty: 30 0RF Primary Care Provider: Nas Bob Referrals: Nas Bob MD [Primary Care Provider] - Activity Restrictions/Additional Instructions: Your history exam and workup indicate you have a viral infection. This will last 3 to 7 days. Keep yourself well-hydrated and use your medication as directed to help control symptoms. Return to the ER should you have any further concerns Print Language: Yakut Disposition Disposition: Home, Self Care Discharge Date/Time: 02/07/25 23:28
[2025-02-07 23:23] VITALS: BP 165/95; PULSE 78; RESP 18; TEMP 36.6; O2SAT 98
== END 2025-02-07 23:28 | disposition home or self-care (01) ==
PROVIDERS: Emergency Provider Emergency Medicine; PCP Family Medicine; Visit Provider Emergency Medicine
DX: B34.9 Viral infection, unspecified (principal); F17.210 Nicotine dependence, cigarettes, uncomplicated; I10 Essential (primary) hypertension
CPT/HCPCS: 80048; 80076; 83690; 85025; 87651; 96361; 96374; 96375; 96376; 99283; A4216; J2405